=== PATIENT | female | born 1965 | race Hispanic/Latino ===

== ENCOUNTER 2019-04-23 10:49 | Day surgery (SDC) | payer MEDICARE ==
--- NOTE | 2019-04-23 11:29 | Anesthesia Day of Surgery ---
Anesthesia Day of Surgery - Day of Surgery Patient Examined: Yes Patient H&P Reviewed: Yes Patient is NPO: Yes
[2019-04-23] MEDS ORDERED: SUBLIMAZE IV PRN (11:33)
[2019-04-23] MEDS ORDERED: ZOFRAN IV PRN (11:33)
--- NOTE | 2019-04-23 11:33 | Anesthesia Consultation ---
Anesthesia Consult and Med Hx Date of service: 04/23/19 - Airway Anesthetic Teeth Evaluation: Edentulous ROM Head & Neck: Adequate Mental/Hyoid Distance: Adequate Mallampati Class: Class II Intubation Access Assessment: Good - Pre-Operative Health Status ASA Pre-Surgery Classification: ASA2 Proposed Anesthetic Plan: General - Pre-Anesthesia Comment Pre-Anesthesia Comments: PONV - Pulmonary Hx Smoking: No Hx Sleep Apnea: No (LUCILLE PRE SCREEN LOW RISK.) - Cardiovascular System Hx Hypertension: No Hx Cardia Arrhythmia: Yes (Tachy. States negative cardiac w/u 4yrs ago) - Central Nervous System Hx Seizures: No (ON TOPOMAX FOR MIGRAINES) Hx Psychiatric Problems: Yes (ANXIETY/DEPRESSION) - Gastrointestinal Hx Gastroesophageal Reflux Disease: No (Hiatal hernia) - Endocrine Hx Renal Disease: Yes (STONES/HYDRONEPHROSIS) - Hematic Hx Anemia: Yes (NOT RECENT) - Other Systems Hx Cancer: No
[2019-04-23] MEDS ORDERED: LACTATED RINGERS 1,000 ML IV SCH (12:00)
[2019-04-23] MEDS ORDERED: TRANSDERM-SCOP TD NR (12:00)
[2019-04-23] MEDS ORDERED: ZOFRAN IV NR (12:00)
[2019-04-23] MEDS ORDERED: LEVAQUIN 500MG/100ML 500 MG/100 ML BAG IV NR (13:52)
[2019-04-23] MEDS ORDERED: XYLOCAINE MPF 2% ONE (14:12)
[2019-04-23] MEDS ORDERED: DIPRIVAN 10 MG/ML IV ONE (14:12)
[2019-04-23] MEDS ORDERED: SUBLIMAZE ONE (14:12)
[2019-04-23] MEDS ORDERED: WATER FOR IRRIG STERILE IR ONE (14:19)
[2019-04-23] MEDS ORDERED: ZOFRAN ONE (14:46)
[2019-04-23] MEDS ORDERED: TORADOL ONE (14:46)
--- NOTE | 2019-04-23 14:57 | Short Stay Summary ---
Short Stay Documentation Date of service: 04/23/19 - History H&P: obtained from office - Allergies and Medications Current Medications: Allergies Penicillins Allergy (Mild, Verified 06/27/13 13:50) Rash Home Medications Medication Instructions Recorded Confirmed Last Taken Type Baclofen [Lioresal] 10 mg PO DAILY 04/17/19 04/17/19 Unknown History Promethazine [Phenergan] 25 mg PO Q6HR PRN 04/17/19 04/17/19 Unknown History Sulfamethoxazole/Trimethoprim 1 each PO BID 04/17/19 04/17/19 Unknown History [Bactrim DS TAB] Zolpidem [Ambien] 10 mg PO QHS 04/17/19 04/17/19 Unknown History traMADol [Ultram] 50 mg PO Q4HR PRN 04/17/19 04/17/19 Unknown History Active Medications Fentanyl (Sublimaze) 50 mcg IV Q5MIN PRN PRN Reason: Pain , Severe (7-10) Lactated Ringer's (Lactated Ringers) 1,000 mls @ 125 mls/hr IV DIRECT DAMIAN Last Admin: 04/23/19 11:48 Dose: 125 mls/hr Documented by: Levofloxacin/Dextrose (Levaquin 500mg/100ml) 500 mg in 100 mls @ 100 mls/hr IV PREOP NR; Protocol Stop: 04/23/19 23:00 Ondansetron HCl (Zofran) 4 mg IV ONCE PRN PRN Reason: Nausea And Vomiting Ondansetron HCl (Zofran) 4 mg IV PREOP NR Stop: 04/23/19 23:59 Last Admin: 04/23/19 11:48 Dose: 4 mg Documented by: Scopolamine (Transderm-Scop) 1 each TD PREOP NR Stop: 04/23/19 23:59 Last Admin: 04/23/19 11:48 Dose: 1 each Documented by: - Brief post op/procedure progress note Date of procedure: 04/23/19 Pre-op diagnosis: Left ureteral stones Post-op diagnosis: same Procedure: left urs, laser and sbe, stenet 6x28 Anesthesia: GETA Findings: multiple lt uret stones Surgeon: JEFFERSON RUDD Estimated blood loss: minimal Pathology: list (stones) Specimen disposition: to lab Condition: stable - Hospital course Hospital course: orpacuheom - Disposition Condition at discharge: Good Short Stay Discharge Plan Activity: advance as tolerated Diet: advance as tolerated Follow up with: JEFFERSON RUDD MD [Staff Physician] - 7 Days
[2019-04-23 15:14] VITALS: BP 132/59
--- NOTE | 2019-04-23 15:26 | XRay Report ---
AP ABDOMEN HISTORY: Left ureteral stones, hydronephrosis FINDINGS: Fluoroscopy was provided by radiology during a urologic procedure. 5 AP images of the abdom en and pelvis are presented. 29 seconds of fluoroscopy time was utilized. The images demonstrate left ureteral stent placement which is in good position on the final image. The bowel gas pattern is unre markable. No pathologic calcifications are detected on fluoroscopy. IMPRESSION: Unremarkable abdomen. Left ureteral stent replacement. Signer Name: Mendez Mclean Jr, MD Signed: 04/23/2019 3:21 PM Workstation Name: [id number]
--- NOTE | 2019-04-23 20:03 | Post Anesthesia Evaluation ---
- Post Anesthesia Evaluation Patient Participated: Yes Airway Patent: Yes Stable Respiratory Function: Yes Nausea/Vomiting: No Temp > 96.8F: Yes Pain Manageable: Yes Adequeate Hydration: Yes Anesthesia Complications: No Block Receding Appropriately: Not Applicable Patient on Ventilator: No
--- NOTE | 2019-05-07 11:25 | Operative Report ---
PREOPERATIVE DIAGNOSIS: Left ureteral stone, staged for this procedure. POSTOPERATIVE DIAGNOSIS: Left ureteral stone, staged for this procedure. PROCEDURE: Left ureteroscopy, holmium laser fragmentation, stone extraction, stent exchange. SURGEON: Sal Granados MD ANESTHESIA: General. ____ ESTIMATED BLOOD LOSS: Minimal. COMPLICATIONS: None. FINDINGS: Left ureteral stones, multiple. IMPLANTS: Stent. CLINICAL INDICATIONS: Counseled RCBA, antibiotics, SCDs. The patient has a history of having an emergent stent placement, was scheduled for this procedure. DESCRIPTION OF PROCEDURE: The patient had antibiotics, SCDs, transferred to the OR suite in supine position, anesthesia, dorsal lithotomy, prepped and draped in standard fashion. ____ Glidewire passed up to the left renal pelvis adjacent to the stent. Stent grasped and removed and pulled out intact. Next, a rigid ureteroscope was passed. We were able to pass this up to the stone. ____ Holmium laser passed, fragmented the stone into smaller pieces. Stone fragments were pulled out with a 3-prong grasper into the bladder. Next, the scope was passed up a little bit further and there were some larger stone identified. This was fragmented with the holmium laser into smaller pieces of fragments, sequentially removed with multiple times with the triceps grasper multiple fragments on multiple passes. At this point, the scope was passed up to the proximal ureter ____ towards the proximal ureter. No significant residual stones were identified. Scope was withdrawn and inspected the ureter carefully. Next, wire backloaded on the cystoscope. A 6-Bengali double-J stent was passed over the wire under direct and fluoroscopic visualization. When the wire and string was removed, nice proximal J, nice distal J within the bladder, bladder drained. The patient awakened and transferred to PACU in good and stable condition. PLAN: Stage for future removal of stent. JOB# [id number] ATS/NTS
== END 2019-04-23 10:50 | disposition home or self-care (01) ==
LOC: OR 10:49
PROVIDERS: ATTEND Urology
DX: N13.2 Hydronephrosis with renal and ureteral calculous obstruction (principal); G43.909 Migraine, unspecified, not intractable, without status migrainosus; I42.9 Cardiomyopathy, unspecified; F32.9 Major depressive disorder, single episode, unspecified; F41.9 Anxiety disorder, unspecified; Z79.899 Other long term (current) drug therapy; Z88.0 Allergy status to penicillin; Z86.718 Personal history of other venous thrombosis and embolism; Z98.51 Tubal ligation status; Z98.891 History of uterine scar from previous surgery; Z87.440 Personal history of urinary (tract) infections; Z98.890 Other specified postprocedural states; Z86.2 Personal history of diseases of the blood and blood-forming organs and certain disorders involving the immune mechanism
CPT/HCPCS: 52356; 74018; A4217; C1758; C2617; J1885; J1956; J2405; J2704; J3010; J7120; Q9967